=== PATIENT | male | born 1970 | race Caucasian/White ===

== ENCOUNTER → 2020-11-19 | Outpatient (CLI) | payer OTHER ==
--- NOTE | 2020-11-21 09:21 | ECHO ---
ECHOCARDIOGRAM DATE OF PROCEDURE: 11/19/2020 Age: 49 Gender: M Height: 68 inches Weight: 188 pounds Body Surface Area: 1.99 meters squared Outpatient REFERRING PROVIDER: JAVIER Santana INDICATION: Abnormal EKG MEASUREMENTS: 2D Measurements: RV - 4.6 cm LV - 4.6 cm Septum 1.1 cm Posterior wall 1.1 cm Aortic Root 3.7 cm LA - 4.0 cm LVEF 70% Doppler Measurements: AV - 1.3 m/s LVOT - 1.0 m/s LVOT diameter 2.0 cm MV-E 71, A 58, E/A ratio 1.2 Early mitral deceleration time 220 msec E prime medial 6.4, A prime medial 9, E prime lateral 10 Average E/E prime ratio 8.6/PCWP - 12.5 mmHg PV - 0.8 m/s Pulmonary artery acceleration time 92 msec PASP 40 mmHg IVC - 2.1 cm COMMENTS: Sinus bradycardia without intraventricular conduction disturbance. Technically challenging study in light of the patient's body habitus but diagnostically useful information was still obtained. M-mode and 2-dimensional echocardiography was performed with a pulse, continuous wave, color flow and tissue Doppler studies. Normal left ventricular size with left ventricular (LV) wall thickness upper limits of normal with hyperkinetic wall motion. Borderline dilated left atrium with currently normal Doppler assessment of left ventricular (LV) diastolic function and estimated mean left atrial pressure. Mildly dilated right heart chambers with normal wall motion and Doppler evidence of moderate3 pulmonary hypertension. Inferior vena cava (IVC) size upper limits of normal with normal respiratory collapse in keeping with central venous pressure upper limits of normal. Normal aortic diameters. Three equal sized aortic cusps of normal thickness and cusp separation. No functional valvular abnormality. Normal-appearing and functioning mitral valvular apparatus with a trace insufficiency. Normal-appearing tricuspid valve with trace insufficiency. No apparent intracardiac mass or pericardial effusion.
== END ==
LOC: M CARPUL 07:14
PROVIDERS: ATTEND Physician Assistant
DX: R94.31 Abnormal electrocardiogram [ECG] [EKG] (principal)